=== PATIENT | female | born 1950 | race African-American/Black ===

== ENCOUNTER 2025-09-22 18:31 | Inpatient (IN) | payer OTHER, MEDICARE ==
[~2025-09-22] VITALS: Ht 172.7 cm; Wt 105.7 kg
[2025-09-22 18:37] VITALS: O2SAT 99
[2025-09-22 20:25] LABS: BASOPHILS % 0.9 % (0.0-2.0); EOSINOPHILS % 1.4 % (0.0-5.0); HEMATOCRIT. 37.5 % (36.0-48.0); HEMOGLOBIN. 12.0 g/dL (12.0-16.0); LYMPHOCYTES % 41.9 % (20.0-50.0); MEAN PLATELET VOLUME 10.6 fl (7.4-10.4); MONOCYTES % 9.0 % (2.0-8.0); NEUTROPHILS % 46.8 % (40.0-76.0); PLATELET 169 x1000/uL (130-400); RED BLOOD CELL COUNT 4.34 mill/uL (4.2-5.4); RED CELL DISTRIBUTION WIDTH 14.8 % (11.6-14.6)
[2025-09-22 20:42] LABS: CREATININE 0.7 mg/dL (0.6-1.0)
[2025-09-22 20:43] LABS: TROPONIN I HIGH SENSITIVITY < 4 ng/L (3.0-34); UREA NITROGEN BLOOD 16 mg/dL (9-23)
[2025-09-22 20:44] LABS: ASPARTATE AMINOTRANSFERASE 21 IU/L (<34); BILIRUBIN DIRECT < 0.1 mg/dL (<=3.0)
[2025-09-22 20:45] LABS: BILIRUBIN TOTAL 0.4 mg/dL (0.1-1.0); PROTEIN TOTAL 7.2 g/dL (6.0-8.3)
[2025-09-22 23:06] LABS: TROPONIN I HIGH SENSITIVITY < 4 ng/L (3.0-34)
[2025-09-22] MEDS: IOHEXOL-350 100 ML BOTTLE ONE (23:34)
[2025-09-23 01:42] VITALS: BP 125/69; PULSE 93; RESP 13; TEMP 36.5848
[2025-09-23 08:00] VITALS: BP 123/86; PULSE 73; RESP 10; TEMP 36.7; O2SAT 99
[2025-09-23] MEDS ORDERED: CLONIDINE 0.1MG TABLET PO PRN (08:15)
[2025-09-23] MEDS ORDERED: IPRATROPIUM/ALBUTEROL 0.5-3(2.5)MG/3ML NEB HHN PRN (08:15)
[2025-09-23] MEDS ORDERED: ONDANSETRON HCL 4MG/2ML INJ IV PRN (08:15)
[2025-09-23] MEDS ORDERED: LORAZEPAM 0.5MG TABLET PO PRN (08:15)
[2025-09-23] MEDS: APIXABAN 2.5 MG TABLET PO SCH (10:09)
[2025-09-23] MEDS: ACETAMINOPHEN 325MG TABLET PO PRN (10:20)
[2025-09-23] MEDS: METOPROLOL TARTRATE 50MG TABLET PO SCH (11:30)
[2025-09-23 12:00] VITALS: BP 125/71; PULSE 88; RESP 10; TEMP 36.7; O2SAT 97
[2025-09-23 16:00] VITALS: BP 147/83; PULSE 76; RESP 13; TEMP 36.4; O2SAT 100
[2025-09-23 20:00] VITALS: BP 126/79; PULSE 91; RESP 15; TEMP 36.7; O2SAT 96
[2025-09-23] MEDS: ATORVASTATIN CALCIUM 20MG TABLET PO SCH (20:40)
[2025-09-23 22:00] VITALS: BP 152/108; PULSE 89; RESP 15; O2SAT 96
[2025-09-23 23:59] LABS: CLARITY URINE CLEAR (CLEAR); COLOR URINE YELLOW (YELLOW); GLUCOSE URINE NEGATIVE (NEGATIVE); KETONES URINE NEGATIVE (NEGATIVE); LEUKOCYTE ESTERASE URINE 1+ (NEGATIVE); NITRITE URINE NEGATIVE (NEGATIVE); OCCULT BLOOD URINE NEGATIVE (NEGATIVE); PH URINE 7.0 (4.5-8.0); PROTEIN URINE NEGATIVE (NEGATIVE); SPECIFIC GRAVITY URINE 1.019 (1.005-1.030); UROBILINOGEN URINE 0.2 E.U./dL (0.2-1.0)
[2025-09-24] VITALS: BP 137/84; PULSE 83; RESP 12; TEMP 37.2; O2SAT 95
[2025-09-24 00:08] LABS: *AMPHETAMINES SCREEN URINE NEGATIVE (NEGATIVE); *BARBITURATES SCREEN URINE NEGATIVE (NEGATIVE); *BENZODIAZEPINES SCREEN URINE NEGATIVE (NEGATIVE); *COCAINE SCREEN URINE NEGATIVE (NEGATIVE); CANNABINOID URINE SCREEN NEGATIVE (NEGATIVE); ECSTASY MDMA SCREEN URINE NEGATIVE (NEGATIVE); METHADONE URINE SCREEN NEGATIVE (NEGATIVE); OPIATES URINE SCREEN NEGATIVE (NEGATIVE); PHENCYCLIDINE URINE SCREEN NEGATIVE (NEGATIVE)
[2025-09-24 04:00] VITALS: BP 133/78; PULSE 90; RESP 16; TEMP 36.5; O2SAT 96
[2025-09-24 06:05] LABS: RBC URINE 0-2 /hpf (0-2)
[2025-09-24 06:06] LABS: SQUAMOUS EPITHELIAL CELL URINE 1+ /lpf (RARE/1+)
[2025-09-24 06:15] LABS: BACTERIA URINE 1+
[2025-09-24 08:00] VITALS: BP 147/80; PULSE 97; RESP 21; TEMP 36.4; O2SAT 98
[2025-09-24] MEDS: PANTOPRAZOLE SODIUM 40 MG/VIAL IV SCH (09:00)
[2025-09-24 11:06] LABS: TRIGLYCERIDE 39.0 mg/dL (0-150)
[2025-09-24 11:07] LABS: LDL CHOLESTEROL 119.0 mg/dL (5-100)
[2025-09-24 11:09] LABS: T4 FREE 1.4 ng/dL (0.89-1.76)
[2025-09-24 12:00] VITALS: BP 140/89; PULSE 95; RESP 19; TEMP 36.7; O2SAT 98
[2025-09-24] MEDS ORDERED: ATOR20TA PO (13:56)
[2025-09-24] MEDS ORDERED: APIX2.5T PO (13:56)
[2025-09-24 16:00] VITALS: BP 136/83; PULSE 96; RESP 16; TEMP 36.3; O2SAT 97
[2025-09-24 17:14] VITALS: BP 136/83; PULSE 96; RESP 16; TEMP 97.4
== END 2025-09-24 18:01 | disposition home or self-care (01) | DRG 310 ==
LOC: ER 18:31 → EDBEDREQTM 09-23 00:43 → EDBEDREQ 09-23 00:43 → EDBEDREQDT 09-23 00:43 → ENRESERV 09-23 01:07 → 5EST 09-23 01:31
PROVIDERS: ADMIT Internal Medicine; ATTEND Internal Medicine
DX: I48.0 Paroxysmal atrial fibrillation (principal); F41.9 Anxiety disorder, unspecified; Z79.01 Long term (current) use of anticoagulants; I10 Essential (primary) hypertension; Z98.82 Breast implant status; Z86.711 Personal history of pulmonary embolism
CPT/HCPCS: 36415; 71045; 71275; 80048; 80061; 80076; 80305; 81003; 83735; 83880; 84439; 84443; 84484; 85025; 85379; 93005; 93306; 93970; 99285; J2470; Q9967